=== PATIENT | female | born 1960 ===

== ENCOUNTER 2018-02-10 07:47 | Day surgery (SDC) | payer MEDICAID ==
[2018-02-10] MEDS ORDERED: Lactated Ringer's 500 ML IV ONE (08:39)
[2018-02-10] MEDS ORDERED: Midazolam 2 MG/2 ML VIAL ONE (10:44)
[2018-02-10] MEDS ORDERED: Propofol 10 mg/ml Inj (20 ML) ONE (10:44)
[2018-02-10] MEDS ORDERED: Lidocaine PF 2% (5 ml) Inj (For Cardiac Arrhy) IV ONE (10:45)
[2018-02-10 11:03] VITALS: TEMP 97.2
[2018-02-10 11:19] VITALS: BP 103/50; PULSE 61; RESP 17; O2SAT 100
== END 2018-02-10 11:11 | disposition home or self-care (01) ==
LOC: H.ENDO 07:47
PROVIDERS: ATTEND Internal Medicine Gastroenterology
DX: K30 Functional dyspepsia (principal); K31.9 Disease of stomach and duodenum, unspecified; K29.70 Gastritis, unspecified, without bleeding
CPT/HCPCS: 43239; 88305; J2250; J2704; J7120